=== PATIENT | female | born 1975 | race African-American/Black ===

== ENCOUNTER 2023-05-14 04:03 | Inpatient (IN) | payer OTHER ==
[~2023-05-14] VITALS: Ht 170.2 cm; Wt 85.5 kg
[2023-05-14] MEDS ORDERED: IV NS 0.9% 1,000 ML BAG IV ONE ×2 (04:30→06:30)
[2023-05-14] MEDS ORDERED: Z GUARD REMEDY 4 OZ OINT TP PRN (05:30)
[2023-05-14] MEDS ORDERED: ONDANSETRON HCL/PF 4 MG/2 ML VIAL IVP PRN (05:30)
[2023-05-14] MEDS ORDERED: IV NS 0.9% 1,000 ML IV PRN ×2 (05:30→09:21)
[2023-05-14] MEDS ORDERED: MAG HYDROX/AL HYDROX/SIMETH 30 ML UDC PO PRN (05:30)
[2023-05-14] MEDS ORDERED: ACETAMINOPHEN 325 MG TABLET PO PRN (05:30)
[2023-05-14] MEDS ORDERED: MAGNESIUM HYDROXIDE 30 ML UDC PO PRN (05:30)
[2023-05-14] MEDS ORDERED: HYDROCODONE/APAP 5/325MG TABLET PO PRN (05:30)
[2023-05-14] MEDS ORDERED: TEMAZEPAM 15 MG CAPSULE PO PRN (05:30)
[2023-05-14 05:52] LABS: BASOPHILS % (AUTO) 0.5 % (0.0-2.0); EOSINOPHILS # (AUTO) 0.1 K/uL (0.0-0.7); EOSINOPHILS % (AUTO) 1.3 % (0.0-6.0); HEMATOCRIT 36 % (33-45); HEMOGLOBIN 11.8 g/dL (11.5-14.8); LYMPHOCYTES # (AUTO) 1.5 K/uL (0.8-4.8); LYMPHOCYTES % (AUTO) 20.9 % (20.0-44.0); MEAN CORPUSCULAR HEMOGLOBIN 32 PG (26.0-33.0); MEAN CORPUSCULAR HGB CONC 33 g/dl (31.0-36.0); MEAN CORPUSCULAR VOLUME 96 fL (82-100); MONOCYTES # (AUTO) 0.5 K/uL (0.1-1.30); MONOCYTES % (AUTO) 6.5 % (2.0-12.0); NEUTROPHILS # (AUTO) 5.1 K/uL (1.8-8.9); NEUTROPHILS % (AUTO) 70.8 % (43.0-81.0); PLATELET COUNT (AUTO) 195 K/uL (150-450); RED BLOOD CELL COUNT(AUTO) 3.75 MIL/uL (4.0-5.2); RED CELL DISTRIBUTION WIDTH 14.6 % (11.5-15.0); WHITE BLOOD COUNT (AUTO) 7.2 K/uL (4.3-11.0)
[2023-05-14 06:08] LABS: INR 0.92 (0.91-1.10); PARTIAL THROMBOPLASTIN TIME 21.9 SEC (24.3-34.3); PROTHROMBIN TIME 9.8 SECS (9.2-11.1)
[2023-05-14 06:10] LABS: LACTIC ACID 2.6 mmol/L (0.4-2.0)
[2023-05-14 06:21] LABS: ALANINE AMINOTRANSFERASE 12 U/L (12-78); ALKALINE PHOSPHATASE 85 U/L (46-116); ASPARTATE AMINOTRANSFERASE 14 U/L (15-37); BILIRUBIN,DIRECT 0.1 mg/dL (0.0-0.2); BILIRUBIN,TOTAL 0.2 mg/dL (0.2-1.0); CALCIUM, SERUM 8.8 mg/dL (8.5-10.1); CARBON DIOXIDE 20 mmol/L (21-32); CHLORIDE 104 mmol/L (98-107); CREATININE 1.3 mg/dL (0.6-1.3); GLUCOSE 93 mg/dL (74-106); POTASSIUM 3.7 mmol/L (3.5-5.1); SODIUM SERUM 136 mmol/L (136-145); TOTAL PROTEIN, SERUM 7.4 g/dL (6.4-8.2); UREA NITROGEN, BLOOD 12 mg/dL (7-18)
[2023-05-14] MEDS ORDERED: IV NS 0.9% 1,000 ML BAG IV STA (07:36)
[2023-05-14] MEDS ORDERED: KETOROLAC TROMETHAMINE 15 MG/ML VIAL IV STA (07:36)
[2023-05-14 07:59] VITALS: O2SAT 99
[2023-05-14 08:00] VITALS: BP 107/67; TEMP 97.9; O2SAT 100
[2023-05-14] MEDS: PANTOPRAZOLE 40 MG TABLET.DR PO SCH (09:09)
[2023-05-14] MEDS ORDERED: LISI20TA30 PO (09:17)
[2023-05-14] MEDS ORDERED: GABA600T12 PO (09:17)
[2023-05-14] MEDS ORDERED: TRAZ-257 PO (09:17)
[2023-05-14] MEDS ORDERED: ESCI10TA PO (09:17)
[2023-05-14] MEDS ORDERED: ALBU18HF2 IH (09:17)
[2023-05-14] MEDS: MORPHINE SULFATE INJ 2 MG/ML DISP.SYRIN IV PRN ×3 (09:22→22:20)
[2023-05-14] MEDS: LISINOPRIL (20MG) 20 MG TABLET PO SCH (09:30)
[2023-05-14] MEDS: ESCITALOPRAM OXALATE (10 MG) 10 MG TABLET PO SCH (09:49)
[2023-05-14] MEDS ORDERED: ALBUTEROL FS 2.5 MG/3 ML VIAL.NEB NEB PRN (10:00)
[2023-05-14] MEDS: GABAPENTIN 300 MG CAPSULE PO SCH ×2 (13:13→17:09)
[2023-05-14] MEDS ORDERED: TRAMADOL HCL 50 MG TABLET PO PRN (14:30)
[2023-05-14 16:00] VITALS: BP 102/60; TEMP 98.4; O2SAT 98
[2023-05-14] MEDS: HYDROMORPHONE INJ 2 MG/ML DISP.SYRIN IV PRN (17:21)
[2023-05-14 20:00] VITALS: BP_SYST 155; BP_SYST 99; BP_DIAS 60; BP_DIAS 95; TEMP 97.7; TEMP 97.9; O2SAT 96; O2SAT 97
[2023-05-14] MEDS ORDERED: TRAZODONE 50 MG TABLET PO SCH (22:00)
[2023-05-15] VITALS: BP 111/67; TEMP 98.4; O2SAT 98
[2023-05-15] MEDS: HYDROMORPHONE INJ 2 MG/ML DISP.SYRIN IV PRN ×2 (02:22→09:52)
[2023-05-15 05:00] VITALS: BP 103/64; TEMP 98.1; O2SAT 98
[2023-05-15 06:38] LABS: BASOPHILS % (AUTO) 0.8 % (0.0-2.0); EOSINOPHILS # (AUTO) 0.1 K/uL (0.0-0.7); EOSINOPHILS % (AUTO) 2.4 % (0.0-6.0); HEMATOCRIT 33 % (33-45); HEMOGLOBIN 11.1 g/dL (11.5-14.8); LYMPHOCYTES # (AUTO) 1.4 K/uL (0.8-4.8); LYMPHOCYTES % (AUTO) 33.9 % (20.0-44.0); MEAN CORPUSCULAR HEMOGLOBIN 31 PG (26.0-33.0); MEAN CORPUSCULAR HGB CONC 34 g/dl (31.0-36.0); MEAN CORPUSCULAR VOLUME 94 fL (82-100); MONOCYTES # (AUTO) 0.4 K/uL (0.1-1.30); MONOCYTES % (AUTO) 8.9 % (2.0-12.0); NEUTROPHILS # (AUTO) 2.3 K/uL (1.8-8.9); PLATELET COUNT (AUTO) 190 K/uL (150-450); RED BLOOD CELL COUNT(AUTO) 3.54 MIL/uL (4.0-5.2); RED CELL DISTRIBUTION WIDTH 14.3 % (11.5-15.0); WHITE BLOOD COUNT (AUTO) 4.2 K/uL (4.3-11.0)
[2023-05-15 06:50] LABS: THYROID STIMULATING HORMONE 2.114 uIU/mL (0.358-3.74)
[2023-05-15 07:05] LABS: CALCIUM, SERUM 8.4 mg/dL (8.5-10.1); CREATININE 0.9 mg/dL (0.6-1.3); PHOSPHORUS 4.4 mg/dL (2.5-4.9)
[2023-05-15 07:30] VITALS: BP 118/76; TEMP 97.7; O2SAT 98
[2023-05-15] MEDS: PANTOPRAZOLE 40 MG TABLET.DR PO SCH (08:49)
[2023-05-15 09:10] VITALS: BP 118/76
[2023-05-15] MEDS: LISINOPRIL (20MG) 20 MG TABLET PO SCH (09:10)
[2023-05-15] MEDS: GABAPENTIN 300 MG CAPSULE PO SCH ×2 (09:10→13:09)
[2023-05-15] MEDS: ESCITALOPRAM OXALATE (10 MG) 10 MG TABLET PO SCH (09:11)
[2023-05-15] MEDS ORDERED: TRAM50TA2 PO (11:14)
[2023-05-15] MEDS: MORPHINE SULFATE INJ 2 MG/ML DISP.SYRIN IV PRN (13:09)
== END 2023-05-15 14:45 | disposition home or self-care (01) | DRG 101 ==
LOC: ER 04:05 → TELE 06:27
PROVIDERS: ADMIT Nurse Practitioner Acute Care; ATTEND Nurse Practitioner Acute Care
DX: G40.909 Epilepsy, unspecified, not intractable, without status epilepticus (principal); E87.20 Acidosis, unspecified; R55 Syncope and collapse; I10 Essential (primary) hypertension; G62.9 Polyneuropathy, unspecified; J45.909 Unspecified asthma, uncomplicated; M48.00 Spinal stenosis, site unspecified; I95.9 Hypotension, unspecified; R94.31 Abnormal electrocardiogram [ECG] [EKG]; Z98.1 Arthrodesis status
CPT/HCPCS: 36415; 70450-TC; 71045-TC; 80048-TC; 80076-TC; 83605-TC; 83735-TC; 84100-TC; 84443-TC; 84484-TC; 85025-TC; 85730-TC; 87040-TC; 93307-TC; 97112-TC; 97116-TC; 97530-TC; A4223; G0378; J1170; J1885; J2270; J7030; J7040